=== PATIENT | male | born 1950 | race Caucasian/White ===

== ENCOUNTER 2019-07-23 07:38 | Observation (INO) | payer MEDICARE, OTHER ==
[~2019-07-23] VITALS: Ht 172.7 cm; Wt 128.4 kg
[2019-07-23] VITALS (16 sets, daily range): BP systolic 130–183; BP diastolic 71–82
--- NOTE | ~2019-07-23 | H ---
[address] [address] HISTORY AND PHYSICAL Name: ROSENDO FOSS Room: [address] Sonal Mayen#: [id number] Admission: 07/23/19 Attend Phys: Lewis Blank MD, Discharge: 07/24/19 Date of : 54 Report #: [id number] THIS REPORT FOR: //name// cc: Bud Long MD, Dean L. MD ~ THIS REPORT FOR: //name// Please refer to the History and Physical performed in the physician's office. By: [facility]6Medical Records Staff [facility] /ANGELI
[2019-07-23 08:24] LABS: HEMATOCRIT 41.1 % (42.0-52.0); HEMOGLOBIN 14.1 gm/dL (14.0-18.0); MCH 29.6 pg (26.0-34.0); MCHC 34.2 g/dL (28.0-37.0); MCV 86.5 fL (80.0-100.0); MPV 7.5 fl. (7.2-11.1); RBC 4.75 mil/uL (4.50-6.00); RDW-CV 14.9 % (10.5-14.5); WBC 9.1 thou/uL (4.0-11.0)
[2019-07-23 08:30] LABS: ANION GAP 9 mmol/L (7-16); BUN 18 mg/dL (7-18); CALCIUM 8.8 mg/dL (8.5-10.1); CHLORIDE 105 mmol/L (98-107); CO2 26 mmol/L (21-32); CREATININE 1.1 mg/dL (0.6-1.3); GLUCOSE 121 mg/dL (70-99); POTASSIUM 3.9 mmol/L (3.5-5.1); SODIUM 140 mmol/L (136-145)
[2019-07-23 08:32] LABS: APTT 25.2 Seconds (25.0-31.3)
[2019-07-23 08:34] LABS: ALBUMIN 3.7 g/dL (3.4-5.0); ALKALINE PHOSPHATASE 78 U/L (46-116); CHOLESTEROL 205 mg/dL (<200); HDL CHOLESTEROL 58 mg/dL (>40); LDL CHOLESTEROL 119 mg/dL (<100); SGOT 23 U/L (15-37); SGPT 36 U/L (30-65); TC:HDL 3.5 Ratio (Not establshd); TOTAL BILIRUBIN 0.4 mg/dL (<0.1-1.0); TOTAL PROTEIN 7.4 g/dL (6.4-8.2); TRIGLYCERIDE 141 mg/dL (<150); VLDL 28 mg/dL (<40)
[2019-07-23 08:36] LABS: SERUM ASSESSMENT Clear
[2019-07-23] MEDS ORDERED: LIPITOR80 MG PO (08:43)
[2019-07-23] MEDS ORDERED: WELLBUTRIN XL300 MG PO (08:44)
[2019-07-23] MEDS ORDERED: ASA81BEC PO (08:44)
[2019-07-23] MEDS ORDERED: CO-ENZYME Q-1010 MG PO (08:45)
[2019-07-23] MEDS ORDERED: PROSCAR 5MG TABL5 MG PO (08:46)
[2019-07-23] MEDS ORDERED: LAMICTAL100 MG PO (08:47)
[2019-07-23] MEDS ORDERED: LISINOPRIL-HCT1 EAC1 PO (08:48)
[2019-07-23] MEDS ORDERED: FLOMAX0.4 MG PO (08:49)
[2019-07-23] MEDS ORDERED: VITAMIN D32000 UNI2 PO (08:50)
[2019-07-23] MEDS ORDERED: AMBIEN 5 MG TABL5 M1 PO (08:51)
--- NOTE | 2019-07-23 18:24 | NUR ---
PT ARRIVED TO UNIT AT APPROX 1405 VIA CART, DAUGHTER AT BEDSIDE. PT A&O X4, VSS, RA, INDUSTRIAL SERVICE TECHNICIAN TRACING SINUS RHYTHM WITH FIRST DEGREE AV BLOCK. POST CATH SITE TO RIGHT GROIN, NON TENDER TO TOUCH, DRESSING CLEAN, DRY, AND INTACT. UP WITH STANDBY ASSIST AND A CANE. PT ORIENTED TO CALL LIGHT AND ROOM, HOURLY ROUNDING COMPLETED.
[2019-07-24] VITALS: BP 144/68
[2019-07-24 04:00] VITALS: BP 143/65
[2019-07-24 05:42] LABS: HEMATOCRIT 40.1 % (42.0-52.0); HEMOGLOBIN 13.7 gm/dL (14.0-18.0); MCH 29.7 pg (26.0-34.0); MCHC 34.2 g/dL (28.0-37.0); MCV 86.9 fL (80.0-100.0); RBC 4.61 mil/uL (4.50-6.00); RDW-CV 15.2 % (10.5-14.5); WBC 9.4 thou/uL (4.0-11.0)
[2019-07-24 06:05] LABS: ALBUMIN 3.4 g/dL (3.4-5.0); CALCIUM 8.6 mg/dL (8.5-10.1); CREATININE 1.1 mg/dL (0.6-1.3); POTASSIUM 3.7 mmol/L (3.5-5.1); TOTAL BILIRUBIN 0.5 mg/dL (<0.1-1.0); TOTAL PROTEIN 6.9 g/dL (6.4-8.2); TROPONIN-I LEVEL 0.55 ng/mL (<0.06)
--- NOTE | 2019-07-24 06:16 | NUR ---
PT SLEPT WELL OVERNIGHT WITHOUT COMPLAINTS OF PAIN OR PROBLEMS. SUMMER BLACK DRSG CDI, AREA SOFT WITHOUT BRUISING. UP WITH SBA AND WALKER TO BR TO VOID WITHOUT DIFFICULTY. AOX4,ABLE TO USE CALL LITE AND MAKE NEEDS KNOWN. ANTICIPATING DISCHARGE HOME TODAY, VSS, TELE SR. AM LABS DRAWN.
[2019-07-24 09:00] VITALS: BP 140/79
[2019-07-24 12:00] VITALS: BP 130/68
--- NOTE | 2019-07-24 13:12 | CARD ---
[address] [address] CARDIAC CATH REPORT Name: ROSENDO FOSS Halima Room: [address] M.R.#: [id number] Admission: 07/23/19 Attend Phys: Lewis Blank MD, Discharge: Date of : 54 Report #: [id number] THIS REPORT FOR: //name// cc: Bud Long MD, Dean L. MD ~ THIS REPORT FOR: //name// APPROVED REPORT Study performed: 07/23/2019 08:44:25 Patient Details Patient Status: Out-Patient Room #: The patient is a 68 year-old male Event Personnel Lewis Blank Associate Financial Analyst, Lilly Mobley Beater Room Helper, Scooter Huntley RTR Scrub, Tarah Hansen RTR Monitor Procedures Performed Art Access - R femoral artery , Left Heart Cath w/or w/o Coronaries , MAJOR Place w/wo Plasty Single RCA , Hemostasis w/ Angioseal Admission/Lab Medications/Medications given during procedure Oxygen Nasal cannula 2 l per min, Lidocaine Subcut 18 ml, Angiomax IV 19 ml, Angiomax Drip IV 44 ml per hr, Angiomax IV 1 ml, Nitroglycerin IC 200 mcg, Effient PO 60 mg, Aspirin PO 162 mg Procedure Narrative The patient was brought electively to the Cardiac Catheterization Laboratory and was prepped and draped in a sterile manner. The right femoral was infiltrated with 2% Lidocaine subcutaneous anesthesia. A 6F [place] sheath was inserted into the right femoral artery. Coronary angiography was performed using coronary diagnostic catheters. The right coronary system was accessed and visualized with a 6F JR4 catheter. The left coronary system was accessed and visualized with a 6F JL4 catheter. The left ventricle was accessed and visualized with a 6F Pigtail catheter. Left ventricular/Aortic Valve gradient assessed via catheter pullback. Left ventriculogram was performed in ROGERS projection. Pre-demployment femoral angiogram was performed . Closure device was deployed with a 6 Fr Angioseal. The patient tolerated the procedure well and there were no complications associated with the [place] [address] CARDIAC CATH REPORT Name: ROSENDO FOSS Room: [address]#: [id number] Admission: 07/23/19 Attend Phys: Lewis Blank MD, Discharge: Date of : 54 Report #: [id number] hematoma. Intraoperative Conscious Sedation Sedation start time: 09:39 Case end Time: 10:48 Fentanyl 50 mcg Versed 2 mg Fluoro Time: 14.3 minutes Dose: DAP [id number] cGycm2 4236 mGy Contrast Type and Amount: Visipaque 305 ml Coronary Angiography The patient's coronary anatomy is right dominant. Diagnostic Cath Left Main 0% narrowing LAD 60% mid vessel stenosis with 70% ostial second diagonal narrowing Circumflex 0% narrowing Right Coronary Dominant vessel with 30% proximal narrowing 90% mid vessel stenosis 70% stenosis just beyond the acute margin and 90% distal stenosis Left Ventriculography The left ventricle is normal in size with normal contractility. The left ventricular ejection fraction is estimated to be 55-60%. Left ventricular wall motion abnormalities are not present. There is no mitral insufficiency. Hemodynamics The aortic pressure is 158/72 mmHg with a mean of 88 mmHg. The left ventricular pressure is 157/4 mmHg with a mean of mmHg. The left ventricular end diastolic pressure is 18 mmHg. PCI Technique Lesion Anticoagulation was achieved with Angiomax. Patient was preloaded with Angiomax IV 19 ml IV bolus. Percutaneous coronary intervention was performed on the distal right coronary artery. The lesion stenosis prior to intervention was 90% with ZHOU 3 flow. A 6F JR 4.0 Guide Catheter was used to engage the ostium. A ProwaterFlex 180CM and a BMW 190CM Interventional Guidewire was used to cross the lesion. BALLOON DILATION A Balloon catheter Trek RX 2.25 X 12 was inserted and inflated up to 14.00atm [place] 12seconds. [place] [address] CARDIAC CATH REPORT Name: ROSENDO FOSS Room: [address] M.R.#: [id number] Admission: 07/23/19 Attend Phys: Lewis Blank MD, Discharge: Date of : 54 Report #: [id number] STENT DEPLOYMENT A drug-eluting stent Holland RX Stent 2.80H40ao was inserted and inflated up to 12.00atm for 9seconds. Additional Inflation: 15.00atm for 10seconds. Additional Inflation: 17.00atm for 9seconds. An additional drug eluting stent 2.25 x 12mm Holland RX stent was inserted to distal right coronary artery. Inflations: 15 silvino for 10 seconds and 17 silvino for 9 seconds. POST STENT DEPLOYMENT BALLOON DILATION A Balloon catheter NC Trek RX 2.5 X 8 was inserted and inflated up to 15.00atm for 8seconds. Final angiography reveals 0 % stenosis with ZHOU 3 flow. PCI Technique Lesion 2 Percutaneous Coronary Intervention was performed on the mid right coronary artery. The lesion stenosis prior to intervention was 90% with ZHOU 3 flow. Balloon Dilation A Balloon catheter Trek RX 2.25 X 12 was inserted and inflated up to 16.00atm for 9seconds. Stent Deployment A drug-eluting stent Brooks RX Stent 2.5X12mm was inserted and inflated up to 12.00atm for 12seconds. Additional Inflation: 14.00atm for 9seconds. Post Stent Deployment Balloon Dilation A Balloon catheter NC Trek RX 2.5 X 8 was inserted and inflated up to 17.00atm for 9seconds. Final angiography reveals 0 % stenosis with ZHOU 3 flow. Conclusion #1 significant coronary artery disease characterized by the following: A 60% mid LAD stenosis with 70% ostial second diagonal narrowing B dominant right coronary artery 30% proximal 90% mid and tandem 70 and 90% distal stenoses #2 normal left ventricular systolic function, estimated ejection [address] [address] CARDIAC CATH REPORT Name: ROSENDO FOSS Room: [address] Sonal SolorzanoR.#: [id number] Admission: 07/23/19 Attend Phys: Lewis Blank MD, Discharge: Date of : 54 Report #: [id number] fraction 55-60% #3 moderate elevation of left ventricular end-diastolic pressure at rest #4 successful PCI with deployment of drug-eluting stents at the sites of 90% mid and 70, 90% distal right coronary stenosis with 0% residual narrowing and ZHOU-3 flow to the distal vessel Recommendations Cardiac Risk Reduction Program Aggressive Medical Therapy Medications Administered Aspirin (any) Prasugrel Diagnostic Cath Approved by: Lewis Blank MD Date/Time: 07/24/2019 13:09:21 <ELECTRONICALLY SIGNED> By: Lewis Blank MD, [facility] 07/24/19 1311 10 10Lewis Blank MD, FACC /INF
[2019-07-24] MEDS ORDERED: EFFIENT10 MG PO (16:20)
[2019-07-24] MEDS ORDERED: NITROSTAT0.4 M1 SUBLING (16:28)
[2019-07-24] MEDS ORDERED: ZETIA10 MG PO (16:30)
--- NOTE | 2019-07-24 16:35 | D ---
[address] [address] DISCHARGE SUMMARY Name: ROSENDO FOSS Halima Room: [address] M.RMarielle#: [id number] Admission: 07/23/19 Attend Phys: Lewis Blank MD, Discharge: Date of : 54 Report #: [id number] THIS REPORT FOR: //name// cc: Bud Long MD, Dean L. MD ~ THIS REPORT FOR: //name// CC: Bud Blank DATE OF SERVICE: 07/24/2019 FINAL DISCHARGE DIAGNOSES: 1. Abnormal nuclear stress test. 2. Unstable angina. 3. Hypertension. 4. Hyperlipidemia. 5. Exogenous obesity. PROCEDURES: On 07/23/2019 -- left heart catheterization, left ventriculography, selective coronary arteriography and percutaneous coronary intervention of the right coronary artery. HOSPITAL COURSE: The patient is a 68-year-old male with hypertension, hyperlipidemia, and weight excess. He has noted chest tightness on exertion such as using his elliptical machine or shoveling snow. Nuclear stress test revealed inducible inferior ischemia with a prominent area. In this context, I performed cardiac catheterization on 07/23/2019, which revealed sequential stenosis in the right coronary artery of hemodynamic significance, 90% in the midvessel, 70% just beyond this and 90% in the distal right coronary artery. I deployed 3 drug-eluting stents in the right coronary artery with 0%, 10%, and 0% residual narrowings following final stent deployment and ZHOU 3 flow to the distal vessel. Troponin priti inconsequentially to 0.55. Additional lab revealed a sodium 142, potassium 3.7, BUN 15, creatinine 1.1, glucose 101. Hemoglobin 13.7, white blood cell count 9400 with 223,000 platelets. He ambulated in the hallways without difficulty and there was good hemostasis at the right femoral site of catheterization. DISCHARGE MEDICATIONS: He was discharged to home on the following medications: Aspirin 81 mg b.i.d., atorvastatin 80 mg daily, Zetia 10 mg daily, bupropion 300 mg daily, cholecalciferol 2000 units daily, finasteride 5 mg daily, Lamictal 100 mg daily, lisinopril/hydrochlorothiazide 20/12.5 one tablet daily, [place] [address] DISCHARGE SUMMARY Name: ROSENDO FOSS Halima Room: [address] Sonal Mayen#: [id number] Admission: 07/23/19 Attend Phys: Lewis Blank MD, Discharge: Date of : 54 Report #: [id number] prasugrel 10 mg daily with a 60 mg periprocedural dose having been given, tamsulosin 0.4 mg daily, Coenzyme Q 30 mg daily, zolpidem 5 mg as needed for sleep, p.r.n. sublingual nitroglycerin. The patient is scheduled to return to see my nurse practitioner, Wendy Arguelles, on 08/07/2019 at 1100 and myself on 09/06/2019 at 0920 hours. Therefore, the patient is discharged to home in stable condition on the aforementioned medications with followup as described above. <ELECTRONICALLY SIGNED> By: Lewis Blank MD, FACC 07/24/19 1635 0922Jolj Blank MD, FAC /nt
--- NOTE | 2019-07-24 16:50 | NUR ---
ASSUME PT CARE AT 0700, PT A&O X4, VSS, RA, INTERNATIONAL SOURCING MANAGER TRACING SINUS RHYTHM/SINUS STELLA WHICH IS BASELINE, FULL ASSESSMENT CHARTED. CATH SITE TO RIGHT GROIN NON TENDER, DRESSING CLEAN, DRY, AND INTACT. PT DISCHARGED HOME AT APPROX 1645 WITH DAUGHTER, EDUCATED ON ALL DISCHARGE INSTRUCTIONS INCLUDING FOLLOW UP APPTS AND MEDICATIONS. IV AND INTERNATIONAL SOURCING MANAGER REMOVED, HOURLY ROUNDING COMPLETED.
--- NOTE | 2019-07-25 13:45 | EKG ---
[place] [address] ELECTROCARDIOGRAM REPORT Name: ROSENDO FOSS Halima Room: [address] M.R.#: [id number] Admission: 07/23/19 Attend Phys: Bart Bella Discharge: 07/24/19 Date of : 54 Date of Service: 07/23/19901 Report #: [id number] THIS REPORT FOR: cc: Bud Long MD, Dean L. MD Holkins,Lewis Solorzano MD [facility] ~ THIS REPORT FOR: //name// [facility] Test Date: 2019-07-23 Test Time: 09:02:39 Pat Name: ROSENDO FOSS Department: Room: [facility] Gender: M Auto Body Repairer: : 1950 Requested By: Lewis Blank Order Number: [id number] Nancy MD: Lewis Blank Measurements Intervals [place] Rate: 51 P: 37 ID: 229 QRS: -23 QRSD: 146 T: -10 QT: 439 QTc: 405 Interpretive Statements Sinus rhythm Prolonged ID interval Right bundle branch block No previous ECG available for comparison Electronically Signed On 07-23-2019 16:12:11 PACKAGING SALES by Lewis Blank [email or web address] <ELECTRONICALLY SIGNED> By: Lewis Blank MD, [facility] 07/23/19 1612 1 09 Lewis Blank MD, [facility] /EPI
--- NOTE | 2019-07-25 13:45 | EKG ---
[place] [address] ELECTROCARDIOGRAM REPORT Name: JAY FOSSBETY Varghese Room: [address] M.R.#: [id number] Admission: 07/23/19 Attend Phys: Bart eBlla Discharge: 07/24/19 Date of : 54 Date of Service: 07/24/19 0824 Report #: [id number] THIS REPORT FOR: cc: Bud Long MD, Dean L. MD Holkins,Lewis Solorzano MD [facility] ~ THIS REPORT FOR: //name// [facility] Test Date: 2019-07-24 Test Time: 08:24:49 Pat Name: ROSENDO FOSS Department: Room: [facility] Gender: M Truck Car And Bus Cleaner: : 1950 Requested By: Lewis Blank Order Number: [id number] Reading MD: Lewis Blank Measurements Intervals [place] Rate: 46 P: 35 SD: 225 QRS: -19 QRSD: 94 T: 8 QT: 454 QTc: 398 Interpretive Statements Sinus bradycardia Borderline prolonged SD interval Borderline left axis deviation Abnormal R-wave progression, late transition Borderline ST elevation, lateral leads Baseline wander in lead(s) V3 Compared to ECG 07/23/2019 11:49:50 T-wave abnormality no longer present ST (T wave) deviation still present Electronically Signed On 07-24-2019 12:52:29 LIME TRIMMER by Lewis Blank [email or web address] <ELECTRONICALLY SIGNED> By: Lewis Blank MD, [facility] 07/24/19 1252 3 3 Lewis Blank MD, [facility] /EPI
--- NOTE | 2019-07-25 13:45 | EKG ---
[place] [address] ELECTROCARDIOGRAM REPORT Name: ROSENDO FOSS Halima Room: [address] M.R.#: [id number] Admission: 07/23/19 Attend Phys: Bart Bella Discharge: 07/24/19 Date of : 54 Date of Service: 07/23/19 1149 Report #: [id number] THIS REPORT FOR: cc: Bud Long MD, Dean L. MD Holkins,Lewis Solorzano MD [facility] ~ THIS REPORT FOR: //name// [facility] Test Date: 2019-07-23 Test Time: 11:49:50 Pat Name: ROSENDO FOSS Department: Room: [facility] Gender: M Pediatric Clinical Nurse Specialist: : 1950 Requested By: Lewis Blank Order Number: [id number] Nacny MD: Lewis Blank Measurements Intervals [place] Rate: 47 P: 27 WV: 229 QRS: -10 QRSD: 94 T: 0 QT: 446 QTc: 395 Interpretive Statements Sinus bradycardia Borderline prolonged [place] interval Borderline T abnormalities, inferior leads Borderline ST elevation, lateral leads No previous ECG available for comparison Electronically Signed On 07-23-2019 16:14:29 MAIL CARRIER TECHNICIAN by Lewis Blank [email or web address] <ELECTRONICALLY SIGNED> By: Lewis Blank MD, [facility] 07/23/19 1614 1149 1149 Lewis Blank MD, [facility] /EPI
== END 2019-07-24 16:59 | disposition home or self-care (01) ==
LOC: M.CL 07:38 → M.TBA-CV 11:08 → M.2W 11:08
PROVIDERS: ADMIT Internal Medicine
DX: I20.0 Unstable angina (principal); I10 Essential (primary) hypertension; E78.5 Hyperlipidemia, unspecified; E66.09 Other obesity due to excess calories; R94.39 Abnormal result of other cardiovascular function study

== ENCOUNTER 2019-08-20 07:48 | Observation (INO) | payer MEDICARE, OTHER ==
[2019-08-20] VITALS (17 sets, daily range): BP systolic 125–147; BP diastolic 61–90
[~2019-08-20] VITALS: Ht 172.7 cm; Wt 125.4 kg
[~2019-08-20 07:48] MED LIST: AMBIEN 5 MG TABL5 M1 PO; ASA81BEC PO; CO-ENZYME Q-1010 MG PO; EFFIENT10 MG PO; FLOMAX0.4 MG PO; LAMICTAL100 MG PO; LIPITOR80 MG PO; LISINOPRIL-HCT1 EAC1 PO; NITROSTAT0.4 M1 SUBLING; PROSCAR 5MG TABL5 MG PO; VITAMIN D32000 UNI2 PO; WELLBUTRIN XL300 MG PO; ZETIA10 MG PO
[2019-08-20 08:14] LABS: HEMATOCRIT 40.9 % (42.0-52.0); MCH 29.5 pg (26.0-34.0); MCHC 34.3 g/dL (28.0-37.0); MPV 7.3 fl. (7.2-11.1); RBC 4.75 mil/uL (4.50-6.00); RDW-CV 15.1 % (10.5-14.5); WBC 9.1 thou/uL (4.0-11.0)
[2019-08-20 08:24] LABS: APTT 25.3 Seconds (25.0-31.3); PROTIME 10.4 Seconds (9.20-11.50)
[2019-08-20 08:38] LABS: ALBUMIN 3.9 g/dL (3.4-5.0); ALKALINE PHOSPHATASE 77 U/L (46-116); ANION GAP 10 mmol/L (7-16); CALCIUM 9.4 mg/dL (8.5-10.1); CHLORIDE 102 mmol/L (98-107); CHOLESTEROL 121 mg/dL (<200); CO2 24 mmol/L (21-32); CREATININE 1.3 mg/dL (0.6-1.3); GLUCOSE 113 mg/dL (70-99); HDL CHOLESTEROL 61 mg/dL (>40); LDL CHOLESTEROL 40 mg/dL (<100); SGOT 26 U/L (15-37); SGPT 41 U/L (30-65); SODIUM 136 mmol/L (136-145); TOTAL BILIRUBIN 0.6 mg/dL (<0.1-1.0); TOTAL PROTEIN 7.7 g/dL (6.4-8.2); TRIGLYCERIDE 104 mg/dL (<150); VLDL 21 mg/dL (<40)
[2019-08-20 09:09] LABS: SERUM ASSESSMENT Clear
[2019-08-20 09:28] LABS: BUN 25 mg/dL (7-18)
--- NOTE | 2019-08-20 16:29 | EKG ---
[place] [address] ELECTROCARDIOGRAM REPORT Name: ROSENDO FOSS Room: [address]R.#: [id number] Admission: 08/20/19 Attend Phys: Bart Bella Discharge: Date of : 54 Date of Service: 08/20/19 0827 Report #: [id number] THIS REPORT FOR: //name// [facility] Test Date: 2019-08-20 Test Time: 08:27:29 Pat Name: ROSENDO FOSS Department: Room: [facility] Gender: M Solder Technician: : 1950 Requested By: Lewis Blank Order Number: [id number] Reading MD: Waldo Bellamy Measurements Intervals [place] Rate: 46 P: 8 NV: 241 QRS: -19 QRSD: 95 T: 1 QT: 415 QTc: 363 Interpretive Statements Sinus bradycardia Prolonged NV interval Borderline left axis deviation Abnormal R-wave progression, late transition Borderline ST elevation, lateral leads Compared to ECG 07/24/2019 08:24:49 No significant changes Electronically Signed On 08-20-2019 16:28:41 CDT by Waldo Bellamy [email or web address] <ELECTRONICALLY SIGNED> By: Waldo Bellamy MD, FACC 08/20/19 1628 6 6 Waldo Bellamy MD, FAC /EPI
--- NOTE | 2019-08-20 16:32 | EKG ---
[place] [address] ELECTROCARDIOGRAM REPORT Name: ROSENDO FOSS Room: [address] M.R.#: [id number] Admission: 08/20/19 Attend Phys: Bart Bella Discharge: Date of : 54 Date of Service: 08/20/19 1340 Report #: [id number] THIS REPORT FOR: //name// [facility] Test Date: 2019-08-20 Test Time: 13:40:36 Pat Name: ROSENDO FOSS Department: Room: [facility] Gender: M Standard Machine Stitcher: : 1950 Requested By: Lewis Blank Order Number: [id number] Nancy MD: Waldo Bellamy Measurements Intervals [place] Rate: 56 P: 31 OR: 225 QRS: -19 QRSD: 94 T: 7 QT: 422 QTc: 408 Interpretive Statements Sinus rhythm Prolonged OR interval Borderline left axis deviation Compared to ECG 07/24/2019 08:24:49 Sinus bradycardia no longer present ST (T wave) deviation still present Electronically Signed On 08-20-2019 16:31:42 CDT by Waldo Bellamy [email or web address] <ELECTRONICALLY SIGNED> By: Waldo Bellamy MD, FAC 08/20/19 1631 1340 1340 Waldo Bellamy MD, [facility] /EPI
--- NOTE | 2019-08-20 20:00 | NUR ---
RECEIVED REPORT AND ASSUMED CARE OF PT, ASSESSMENT COMPLETED. RT GROIN INTACT, NO ECCHYMOSIS OR HEMATOMA. EDUCATED PT ON MONITORING SITE OCC. TELEMETRY ON SHOWING SB WITH 1ST AVB. WILL CONT TO MONITOR AND ASSIST NEEDED.
[2019-08-21 04:00] VITALS: BP 134/62
[2019-08-21 04:11] LABS: HEMATOCRIT 37.8 % (42.0-52.0); HEMOGLOBIN 13.2 gm/dL (14.0-18.0); MCH 29.8 pg (26.0-34.0); MCHC 34.9 g/dL (28.0-37.0); MCV 85.4 fL (80.0-100.0); MPV 7.3 fl. (7.2-11.1); RBC 4.43 mil/uL (4.50-6.00); RDW-CV 15.3 % (10.5-14.5)
[2019-08-21 04:57] LABS: ALBUMIN 3.4 g/dL (3.4-5.0); CALCIUM 8.6 mg/dL (8.5-10.1); CREATININE 1.1 mg/dL (0.6-1.3); POTASSIUM 4.1 mmol/L (3.5-5.1); TOTAL BILIRUBIN 0.5 mg/dL (<0.1-1.0); TOTAL PROTEIN 6.7 g/dL (6.4-8.2)
[2019-08-21 05:28] LABS: TROPONIN-I LEVEL 3.4 ng/mL (<0.06)
--- NOTE | 2019-08-21 06:04 | NUR ---
SLEPT WELL TONIGHT. RT GROIN REMAINS WITHOUT INCIDENT. GAIT STEAD TO AND FROM BR. TELEMETRY CONT TO SHOW SB WITH 1ST AVB. HS GOALS OF REST AND SAFETY ACHIEVED. HOURLY ROUNDING OBSERVED.
[2019-08-21 07:30] VITALS: BP 127/72
--- NOTE | 2019-08-21 10:49 | CARD ---
[address] [address] CARDIAC CATH REPORT Name: DAGOBERTOBETYROSENDO Room: [address] MKaylee#: [id number] Admission: 08/20/19 Attend Phys: Lewis Blank MD, Discharge: Date of : 54 Report #: [id number] THIS REPORT FOR: //name// cc: Bud Long MD, Dean L. MD ~ THIS REPORT FOR: //name// APPROVED REPORT Study performed: 08/20/2019 08:52:11 Patient Details Patient Status: Out-Patient Room #: The patient is a 68 year-old male Event Personnel Lewis Blank Alarm Signaler, Starr Gabriel RN Strand And Binder Controller, Tarah Hansen RTR Monitor, Flor Stack RTR Scrub, Russell Vazquez BALE STACKER Scrub Procedures Performed Art Access - R femoral artery, Left Heart Catheterization, MAJOR Single LAD, Hemostasis with Angioseal Indication Positive stress test Risk Factors Obesity, Hypercholesterolemia, Hypertension Previous Procedures/Diagnoses Previous PCI Admission/Lab Medications/Medications given during procedure Oxygen Nasal cannula 2 l per min, Lidocaine Subcut 18 ml, Angiomax IV bolus 19.5 ml, Angiomax Drip IV 43 ml per hr, Effient PO 30 mg, Aspirin PO 162 mg Procedure Narrative The patient was brought electively to the Cardiac Catheterization Laboratory and was prepped and draped in a sterile manner. The right femoral groin area was infiltrated with 1% Lidocaine subcutaneous anesthesia. A 6F [place] sheath was inserted into the right femoral artery. Coronary angiography was performed using coronary diagnostic catheters. The right coronary system was accessed [place] [address] CARDIAC CATH REPORT Name: ROSENDO FOSS Halima Room: [address] Faheem#: [id number] Admission: 08/20/19 Attend Phys: Lewis Blank MD, Discharge: Date of : 54 Report #: [id number] a 6F JR4 catheter. The left coronary system was accessed and visualized with a 6F JL4 catheter. The left ventricle was accessed and visualized with a 6F Pigtail catheter. Left ventricular/Aortic Valve gradient assessed via catheter pullback. Left ventriculogram was performed in ROGERS projection. Pre-demployment femoral angiogram was performed . Closure device was deployed with a 6 Fr Angioseal. The patient tolerated the procedure well and there were no complications associated with the procedure. There was no hematoma. Intraoperative Conscious Sedation Sedation start time: 09:36 Case end Time: 10:49 Fentanyl 50 mcg Versed 1 mg Fluoro Time: 20.4 minutes Dose: DAP [id number] cGycm2 3101 mGy Contrast Type and Amount: Visipaque 300 ml Coronary Angiography The patient's coronary anatomy is right dominant. Diagnostic Cath Left Main 0% narrowing LAD 80% focal mid LAD stenosis with 70% ostial second diagonal narrowing Circumflex 30% mid vessel narrowing with 30% narrowing of the first marginal branch of the nondominant circumflex Right Coronary 30% proximal narrowing with widely patent mid and distal right coronary stents Left Ventriculography The left ventricle is normal in size with normal contractility. The left ventricular ejection fraction is estimated to be 60%. Left ventricular wall motion abnormalities are not present. There is no mitral insufficiency. Hemodynamics The aortic pressure is 138/69 mmHg with a mean of 94 mmHg. The left ventricular pressure is 140/7 mmHg with a mean of mmHg. The left ventricular end diastolic pressure is 23 mmHg. PCI Technique Lesion Anticoagulation was achieved with Angiomax. Patient was preloaded with Angiomax IV bolus 19.5 ml. Percutaneous coronary intervention was performed on the mid left anterior descending [place] [address] CARDIAC CATH REPORT Name: ROSENDO FOSS Room: [address]#: [id number] Admission: 08/20/19 Attend Phys: Lewis Blank MD, Discharge: Date of : 54 Report #: [id number] lesion stenosis prior to intervention was 80% with ZHOU 3 flow. A 6F XB LAD 3.5 Guide Catheter was used to engage the left main ostium. A ProwaterFlex 180CM Interventional Guidewire was used to cross the lesion. BALLOON DILATION A Balloon catheter Trek RX 2.5 X 12 was inserted and inflated up to 14.00atm for 14seconds. STENT DEPLOYMENT A drug-eluting stent Brooks RX Stent 2.5X15mm was inserted and inflated up to 10.00atm for 12seconds. Additional Inflation: 12.00atm for 10seconds. Additional Inflation: 14.00atm for 14seconds. POST STENT DEPLOYMENT BALLOON DILATION A Balloon catheter NC Trek RX 2.75 X 8 was inserted and inflated up to 15.00atm for 11seconds. Additional Inflation: 17.00atm for 9seconds. Additional Inflation: 18.00atm for 9seconds. Final angiography reveals 10 % stenosis with ZHOU 3 flow. COMMENTS A BMW 190 cm interventional guidewire was advanced across the diagonal artery. Conclusion #1 significant coronary artery disease characterized by the following: A 80% focal mid LAD stenosis with 70% ostial narrowing of a small second diagonal branch B dominant right coronary artery 30% proximal narrowing and widely patent mid and distal stents C 30% mid circumflex narrowing with 30% narrowing of the first marginal branch of the circumflex #2 normal left ventricular systolic function, estimate ejection fraction being 60% #3 moderate elevation of left ventricular end-diastolic pressure #4 successful percutaneous coronary intervention with deployment of a drug-eluting stent at site of 80% mid LAD stenosis with 10% residual narrowing and ZHOU-3 flow to [place] [address] CARDIAC CATH REPORT Name: ROSENDO FOSS Room: [address] Sonal Mayen#: [id number] Admission: 08/20/19 Attend Phys: Lewis Blank MD, Discharge: Date of : 54 Report #: [id number] Recommendations Cardiac Risk Reduction Program Aggressive Medical Therapy Medications Administered Aspirin (any) Prasugrel Diagnostic Cath Approved by: Lewis Blank MD Date/Time: 08/21/2019 10:47:20 <ELECTRONICALLY SIGNED> By: Lewis Blank MD, FAC 08/21/19 1048 1048 1048Lewis Blank MD, FACC /INF
--- NOTE | 2019-08-21 11:02 | EKG ---
[place] [address] ELECTROCARDIOGRAM REPORT Name: ROSENDO FOSS Room: [address]R.#: [id number] Admission: 08/20/19 Attend Phys: Bart Bella Discharge: Date of : 54 Date of Service: 08/21/19 0831 Report #: [id number] THIS REPORT FOR: //name// [facility] Test Date: 2019-08-21 Test Time: 08:31:28 Pat Name: ROSENDO FOSS Department: Room: [facility] Gender: M Indian Trader: : 1950 Requested By: Lewis Blank Order Number: [id number] Reading MD: Waldo Bellamy Measurements Intervals [place] Rate: 47 P: -1 AL: 230 QRS: -19 QRSD: 93 T: -2 QT: 422 QTc: 373 Interpretive Statements Sinus bradycardia Prolonged [place] interval Borderline left axis deviation Borderline T abnormalities, inferior leads Borderline ST elevation, lateral leads Compared to ECG 08/20/2019 13:40:36 T-wave abnormality now present ST (T wave) deviation now present Sinus rhythm no longer present Electronically Signed On 08-21-2019 11:01:46 CDT by Waldo Bellamy [email or web address] <ELECTRONICALLY SIGNED> By: Waldo Bellamy MD, FACC 08/21/19 1101 0 0 Waldo Bellamy MD, [facility] /EPI
[2019-08-21 11:27] VITALS: BP 115/61
--- NOTE | 2019-08-21 14:30 | NUR ---
ASSUMED PT CARE AT 0700, PT A&O X4, VSS, RA, SLURRY TANK TENDER TRACING SINUS RHYTHM/SINUS STELLA WITH BBB. CATH SITE AT RIGHT GROIN REMAINS INTACT, NO REDNESS OR SWELLING. PT DISCHARGED HOME AT APPROX 1415 WITH , EDUCATED ON ALL DISCHARGE INSTRUCTIONS INCLUDING FOLLOW UP APPTS AND MEDICATIONS. IV AND SLURRY TANK TENDER REMOVED, HOURLY ROUNDING COMPLETED.
--- NOTE | 2019-08-22 11:21 | D ---
[address] [address] DISCHARGE SUMMARY Name: DAGOBERTOBETYROSENDO Halima Room: [address] Sonal Mayen#: [id number] Admission: 08/20/19 Attend Phys: Lewis Blank MD, Discharge: 08/21/19 Date of : 54 Report #: [id number] THIS REPORT FOR: //name// cc: Bud Long MD, Dean L. MD ~ THIS REPORT FOR: //name// CC: Bud Blank DATE OF SERVICE: 08/21/2019 FINAL DISCHARGE DIAGNOSES: 1. Abnormal nuclear stress test. 2. Coronary artery disease. 3. Status post prior percutaneous coronary intervention to the right coronary artery with percutaneous coronary intervention to the left anterior descending on 08/20/2019. 4. Hypertension. 5. Hyperlipidemia. 6. Obstructive sleep apnea. 7. Exogenous obesity. PROCEDURES: 08/20/2019 -- left heart catheterization, left ventriculography, selective coronary arteriography, and percutaneous coronary intervention with deployment of drug-eluting stent in the mid LAD. The patient is a very pleasant 68-year-old male with a number of risk factors for coronary artery disease and recently abnormal nuclear stress test. One month ago, he underwent intervention of the right coronary artery with deployment of 3 drug-eluting stents in the mid to distal portion of that vessel. He also had a high-grade mid LAD lesion noted. Since discharge, he has done reasonably well, though he has limited his activity. In the context of the known anatomy and risk factor profile, he underwent recatheterization on 08/20/2019, which revealed widely patent mid and distal right coronary stents with 75% mid LAD stenosis with a moderately severe ostial lesion with takeoff of the second diagonal branch, very small vessel. Given this data, I elected to perform percutaneous coronary intervention, deploying one 2.5 x 15 mm drug-eluting stent, post-dilated to 2.75 mm, inflated at 18 atmospheres with 10% residual narrowing, ZHOU 3 flow of the distal vessel. Troponin priti minimally to 3.40 post-procedurally. He ambulated in the hallways without difficulty with good hemostasis at the [place] [address] DISCHARGE SUMMARY Name: ROSENDO FOSS Halima Room: [address] Sonal Mayen#: [id number] Admission: 08/20/19 Attend Phys: Lewis Blank MD, Discharge: 08/21/19 Date of : 54 Report #: [id number] The patient had the following lab post-procedurally: Sodium 138, potassium 4.1, BUN 19, creatinine 1.1, glucose 101. Hemoglobin 13.2, white blood cell count 9000, hematocrit 37.8, platelets 212,000. Troponin 3.40. Again, he ambulated in the hallways without difficulty and was discharged to home on 08/21/2019 on the following medications: Aspirin 81 mg daily, atorvastatin 80 mg daily, bupropion (Wellbutrin XL) 300 mg daily, cholecalciferol, vitamin D3 2000 units daily, Zetia 10 mg daily, finasteride 5 mg daily, lamotrigine (Lamictal) 100 mg at bedtime, nitroglycerin sublingually p.r.n. chest discomfort. He is scheduled to return to see me in the office on 09/06/2019 at 0920 hours. Therefore, the patient is discharged to home in stable condition on the aforementioned medications with followup as described above. <ELECTRONICALLY SIGNED> By: Lewis Blank MD, FACC 08/22/19 1121 0901 0938Lewis Blank MD, FACC /nt
== END 2019-08-21 14:14 | disposition home or self-care (01) ==
LOC: M.CL 07:48 → M.2W 11:12 → M.TBA-CV 11:12 → M.2W 11:52
PROVIDERS: ADMIT Internal Medicine
DX: I25.10 Atherosclerotic heart disease of native coronary artery without angina pectoris (principal); I10 Essential (primary) hypertension; E78.5 Hyperlipidemia, unspecified; G47.33 Obstructive sleep apnea (adult) (pediatric); E66.9 Obesity, unspecified

== ENCOUNTER → 2020-12-24 | Outpatient (CLI) | payer MEDICARE, OTHER ==
[2020-12-24] VITALS (11 sets, daily range): BP systolic 112–180; BP diastolic 49–77
[~2020-12-24] VITALS: Ht 172.7 cm; Wt 122.9 kg
[~2020-12-24] MED LIST changes: +VITAMIN D3250 MC1 PO
[2020-12-24 10:11] LABS: HEMATOCRIT 38.8 % (42.0-52.0); HEMOGLOBIN 13.3 gm/dL (14.0-18.0); MCHC 34.4 g/dL (28.0-37.0); MCV 87.2 fL (80.0-100.0); MPV 7.6 fl. (7.2-11.1); RBC 4.45 mil/uL (4.50-6.00); RDW-CV 15.2 % (10.5-14.5)
[2020-12-24 10:22] LABS: ANION GAP 9 mmol/L (7-16); BUN 21 mg/dL (7-18); CALCIUM 8.7 mg/dL (8.5-10.1); CHLORIDE 107 mmol/L (98-107); CO2 25 mmol/L (21-32); GLUCOSE 107 mg/dL (70-99); POTASSIUM 4.2 mmol/L (3.5-5.1); SODIUM 141 mmol/L (136-145)
[2020-12-24 10:23] LABS: APTT 24.8 Seconds (25.0-31.3); PROTIME 10.5 Seconds (9.20-11.50)
[2020-12-24 10:26] LABS: ALBUMIN 3.5 g/dL (3.4-5.0); ALKALINE PHOSPHATASE 83 U/L (46-116); CHOLESTEROL 139 mg/dL (<200); HDL CHOLESTEROL 59 mg/dL (>40); LDL CHOLESTEROL 63 mg/dL (<100); SERUM ASSESSMENT Clear; SGOT 18 U/L (15-37); SGPT 25 U/L (30-65); TC:HDL 2.4 Ratio (Not establshd); TOTAL BILIRUBIN 0.3 mg/dL (<0.1-1.0); TOTAL PROTEIN 7.1 g/dL (6.4-8.2); TRIGLYCERIDE 89 mg/dL (<150); VLDL 18 mg/dL (<40)
--- NOTE | 2020-12-24 16:36 | EKG ---
[place] [address] ELECTROCARDIOGRAM REPORT Name: ROSENDO FOSS Room: [employer]#: [id number] Admission: 12/24/20 Attend Phys: Bart Bella Discharge: Date of : 54 Date of Service: 12/24/20 1039 Report #: [id number] THIS REPORT FOR: //name// [facility] Test Date: 2020-12-24 Test Time: 10:39:51 Pat Name: ROSENDO PRUDENCE Department: Room: Gender: Dough Sheeter: MAMI : 1950 Requested By: Lewis Blank Order Number: [id number] Reading MD: Lewis Blank Measurements Intervals [place] Rate: 45 P: 52 [place]: 258 QRS: -48 QRSD: 108 T: 30 QT: 455 QTc: 394 Interpretive Statements Sinus bradycardia Prolonged [place] interval Left anterior fascicular block Abnormal R-wave progression, late transition Compared to ECG 08/21/2019 08:31:28 Left anterior fascicular block now present T-wave abnormality no longer present ST (T wave) deviation no longer present Electronically Signed On 12-24-2020 16:36:02 CDT by Lewis Blank [email or web address] <ELECTRONICALLY SIGNED> By: Lewis Blank MD, [facility] 12/24/20 1636 1039 1039 Lewis Blank MD, [facility] /EPI
--- NOTE | 2020-12-24 17:24 | CARD ---
[address] [address] CARDIAC CATH REPORT Name: ROSENDO FOSS [facility]ima [id number] Admission: 12/24/20 Attend Phys: Lewis Blank MD, Discharge: Date of : 54 Report #: [id number] THIS REPORT FOR: cc: Bud Long MD, Dean L. MD Holkins,Lewis Solorzano MD [facility] ~ APPROVED REPORT Study performed: 12/24/2020 11:53:01 Patient Details The patient is a 70 year-old male Event Personnel Lewis Blank Brusher Warp, Cathy Keyes RN RN, Scooter Huntley RTR ScrubSreekanth Jessie RTR Monitor, Avery Taylor STREETCAR DISPATCHER Monitor Procedures Performed Left heart catheterization, left ventriculography, and selective coronary arteriography Indication Positive stress test Risk Factors Obesity, Hypercholesterolemia, Hypertension Previous Procedures/Diagnoses Previous PCI Procedure Narrative The patient was brought electively to the Cardiac Catheterization Laboratory and was prepped and draped in a sterile manner. The right femoral was infiltrated with 2% Lidocaine subcutaneous anesthesia. A 6Fr x 12cm Ultimum sheath was inserted into the right femoral artery. Coronary angiography was performed using coronary diagnostic catheters. The right coronary system was accessed and visualized with a Diagnostic - JR4 catheter. The left coronary system was accessed and visualized with a Diagnostic - JL4 catheter. The left ventricle was accessed and visualized with a Diagnostic - PIG catheter. Left ventricular/Aortic Valve gradient assessed via catheter pullback. Pre-demployment femoral angiogram was performed . Closure device was deployed with a Fr MynxGrip 6/7F. The [place] [address] CARDIAC CATH REPORT Name: DAGOBERTOBETYROSENDO Halima Room: [facility]#: [id number] Admission: 12/24/20 Attend Phys: Lewis Blank MD, Discharge: Date of : 54 Report #: [id number] well and there were no complications associated with the procedure. There was no hematoma. Intraoperative Conscious Sedation Sedation start time: 1212 Case end Time: 1238 Fentanyl 75 mcg Versed 4 mg Fluoro Time: 2.5 minutes Dose: DAP [id number] cGycm2 1368 mGy Contrast Type and Amount: Omnipaque 70 ml Diagnostic Cath Left Main 0% narrowing LAD Widely patent mid LAD stent with 50% ostial second diagonal narrowing Circumflex 0% narrowing Right Coronary Dominant vessel with widely patent mid and distal stents Left Ventriculography The left ventricle is normal in size with normal contractility. The left ventricular ejection fraction is estimated to be 60%. Left ventricular wall motion abnormalities are not present. There is no mitral insufficiency. Hemodynamics The aortic pressure is 144/60 mmHg with a mean of 93 mmHg. The left ventricular pressure is 139/-3 mmHg with a mean of mmHg. The left ventricular end diastolic pressure is 16 mmHg. There was no gradient across the aortic valve upon pullback. Conclusion 1. Mild coronary artery disease characterized by the following: A widely patent mid LAD stent with 50% ostial second diagonal narrowing B widely patent mid and distal right coronary artery stents, this being a dominant vessel 2. Normal left ventricular systolic function, estimate ejection fraction being 60% 3. Mild elevation of left ventricular end-diastolic [place] [address] CARDIAC CATH REPORT Name: ROSENDO FOSS Room: [facility]#: [id number] Admission: 12/24/20 Attend Phys: Lewis Blank MD, Discharge: Date of : 54 Report #: [id number] Recommendations Cardiac Risk Reduction Program Aggressive Medical Therapy Diagnostic Cath Approved by: Lewis Blank MD Date/Time: 12/24/2020 17:22:29 <ELECTRONICALLY SIGNED> By: Lewis Blank MD, FACC 12/24/20 172 22 172Lewis Blank MD, FACC /INF
== END | disposition home or self-care (01) ==
LOC: M.CL 09:31
PROVIDERS: ATTEND Internal Medicine
DX: R94.39 Abnormal result of other cardiovascular function study (principal); I25.10 Atherosclerotic heart disease of native coronary artery without angina pectoris; I10 Essential (primary) hypertension; E78.00 Pure hypercholesterolemia, unspecified; E66.9 Obesity, unspecified; Z98.890 Other specified postprocedural states; Z79.899 Other long term (current) drug therapy; Z87.891 Personal history of nicotine dependence; Z20.822 Contact with and (suspected) exposure to COVID-19; Z79.82 Long term (current) use of aspirin; Z79.01 Long term (current) use of anticoagulants